=== PATIENT | male | born 1970 | race Caucasian/White ===

== ENCOUNTER 2017-06-08 20:40 | Emergency (ER) | payer OTHER ==
[~2017-06-08] VITALS: Ht 182.9 cm; Wt 98.8 kg
[~2017-06-08 20:40] MED LIST: ATV/1 PO; CHOL100010 PO; CHOL20007 PO; CHONCAP PO; HYDR-4079 PO; LXP/10 PO; MULTTAB58 PO
[2017-06-08 21:32] VITALS: TEMP 36.6; Ht 182.9 cm; Wt 98.8 kg
--- NOTE | 2017-06-08 22:42 | DIAGNOSTIC IMAGING REPORT ---
R KNEE 3 VIEWS CLINICAL HISTORY: right knee pain pain COMPARISON: None. DISCUSSION: The bones and joint spaces appear intact. There is no evidence of fracture, dislocation or bony disease. There is mild degenerative change of all major joint compartments. No acute bony abnormality. IMPRESSION: Mild degenerative change. No acute bony abnormality. The above report was generated using voice recognition software. It may contain grammatical, syntax or spelling errors. Electronically signed by: Easton Sharma M.D. 06/08/2017 10:40 PM Dictated Date/Time: 06/08/2017 10:39 PM
[2017-06-08] MEDS ORDERED: KETOROLAC TROMETHAMINE 60 MG/2 ML VIAL IM STA (23:15)
[2017-06-08] MEDS ORDERED: PARO1TAB27 PO (23:30)
[2017-06-08] MEDS ORDERED: CARI350T28 PO (23:32)
[2017-06-08] MEDS ORDERED: BUPRTAB51 PO (23:32)
[2017-06-08] MEDS ORDERED: ERGO500037 PO (23:32)
[2017-06-08] MEDS ORDERED: PRT/20 PO (23:32)
[2017-06-08] MEDS ORDERED: NORCO 5/325MG HOME PACK PO ONE (23:45)
[2017-06-08 23:47] VITALS: BP 148/78; PULSE 70; O2SAT 98
--- NOTE | 2017-06-09 04:17 | EMERGENCY ROOM VISIT NOTE ---
ED Visit Note First contact with patient: 23:04 CHIEF COMPLAINT: knee pain HISTORY OF PRESENT ILLNESS: This 47-year-old male patient presents to the emergency department with complaints of right knee pain worsening over the past 2 days. The patient states that he helped his ex- move a few days ago and this exacerbated his pain. He had difficulty walking yesterday. The patient denies any other injuries besides their knee. The patient is without swelling or bruising. There is pain medially. They rate the pain as dull and 8/10. No numbness or tingling. No previous injuries to this knee. No ankle, foot or hip pain. REVIEW OF SYSTEMS: A 6 system review of systems was completed with positives and pertinent negatives listed in the HPI. ALLERGIES: No known allergies MEDICATIONS: See EMR PMH: See EMR SOCIAL HISTORY: Lives locally PHYSICAL EXAM: Vital Signs: Reviewed Nurse's notes, vital signs stable. GENERAL : White male, no acute distress, but appears in pain, well-developed, well- nourished. MENTAL STATUS: Alert, oriented to person place and time, and cooperative. MUSCULOSKELETAL: The right knee is not swollen. There is no ecchymosis. There is no joint effusion present. The patient is tender medially. There is medial joint line tenderness. The patella does not subluxate. Range of motion is normal. Strength of the quads and hamstrings is 5/ 5. Merle's is negative. Soco's and Anterior Drawer tests are negative. There is no laxity with varus and valgus stressing. The foot and toes are warm and well-perfused. Dorsalis pedis pulse 2+. Sensation to pain and light touch is intact. Capillary refill less than 2 seconds. R KNEE 3 VIEWS CLINICAL HISTORY: right knee pain pain COMPARISON: None. DISCUSSION: The bones and joint spaces appear intact. There is no evidence of fracture, dislocation or bony disease. There is mild degenerative change of all major joint compartments. No acute bony abnormality. IMPRESSION: Mild degenerative change. No acute bony abnormality. EMERGENCY DEPARTMENT COURSE: Physical exam and history were performed. Nursing notes and EMR were reviewed. The patient presented right knee pain after activity the past few days. X-ray was obtained and reviewed by myself and radiology showed no acute process. The patient was given a knee immobilizer and a home pack of Vicodin. He evidently has crutches at home that he is to use. I will give him information for orthopedics locally. He was given a shot of Toradol for pain control here as he evidently has a history of gastric bypass. The patient was invited back to the ER with any new, worsening , or concerning symptoms. Problem List Medical Problems: (1) Anxiety disorder Status: Chronic (2) Depression Status: Chronic (3) Gastric ulcer with hemorrhage Status: Resolved (4) History of epididymitis Status: Resolved (5) Sleep apnea Status: Chronic Surgical Problems: (1) History of gastric bypass Status: Chronic Current/Historical Medications Scheduled Bupropion (Wellbutrin-Xl), 300 MG PO DAILY Carisoprodol (Soma), 350 MG PO QID Ergocalciferol (Vitamin D 76812 Unit), 50,000 UNIT PO WK Hydrocodone/Acetaminophen 10MG/325MG ([place] 10MG/325MG), 1 TAB PO QID Pantoprazole (Protonix), 20 MG PO DAILY Paroxetine (Paxil), 20 MG PO DAILY Allergies Coded Allergies: No Known Allergies (Unverified , 06/08/17) Vital Signs Date Time Temp Pulse Resp B/P (MAP) Pulse Ox O2 Delivery O2 Flow Rate FiO2 06/08/17 23:47 70 18 148/78 98 Room Air 06/08/17 22:55 76 16 128/77 98 Room Air 06/08/17 21:32 36.6 70 18 135/80 95 Room Air Medications Administered Medications (Trade) Dose Ordered Sig/Karl Route Start Time Stop Time Status Last Admin Dose Admin Ketorolac Tromethamine (Toradol Inj) 60 mg NOW STAT IM 06/08/17 23:15 06/08/17 23:16 DC 06/08/17 23:28 60 MG Acetaminophen/ Hydrocodone Bitart ([place] 5/325mg Home Pack) 1 homepack UD ONCE PO 06/08/17 23:45 06/08/17 23:46 DC 06/08/17 23:42 1 HOMEPACK Departure Information Impression Primary Impression: Right knee pain Dispostion Home / Self-Care Condition GOOD Referrals Flako Haq MD Forms HOME CARE DOCUMENTATION FORM, IMPORTANT VISIT INFORMATION Patient Instructions My [facility] Additional Instructions You were seen and evaluated today on an emergency basis only. This is not a substitute for, or an effort to provide, complete comprehensive medical care. It is not possible to recognize and treat all injuries or illnesses in a single emergency department visit. For this reason it is recommended that you followup with Orthopedist, Dr. Haq's office, for ongoing care and evaluation. For baseline pain relief you may alternate ibuprofen and acetaminophen every 4 hours for pain control. Take 600 mg ibuprofen (Advil) and then 4 hours later take 1000 mg acetaminophen (Tylenol). Do not take more than 3000 mg acetaminophen in a single day. Do not do this for longer than 3 days. Wear knee immobilizer and use crutches from home to help with walking You are welcome to return to the emergency department anytime with new, worsening, or concerning symptoms.
== END 2017-06-08 23:49 | disposition home or self-care (01) ==
LOC: C.EDB 20:41
DX: M25.561 Pain in right knee (principal); X50.9XXA Other and unspecified overexertion or strenuous movements or postures, initial encounter; F41.9 Anxiety disorder, unspecified; F32.9 Major depressive disorder, single episode, unspecified; G47.30 Sleep apnea, unspecified